=== PATIENT | female | born 1975 | race Caucasian/White ===

== ENCOUNTER 2016-04-21 14:48 | Emergency (ER) | payer OTHER ==
[2016-04-21 15:04] VITALS: RESP 18; TEMP 98
--- NOTE | 2016-04-21 15:15 | UCPHY ---
[id number]: 04/21/16 14:53 HPI/ROS: CHIEF COMPLAINT: Buttock pain HISTORY OF PRESENT ILLNESS: 40-year-old immunocompetent female with history of anal fissures complaining of 1 month of anal and perianal pain which has become progressive and and was initially present with defecation only however is now present which he is not having a bowel movement. No blood or pus in stool. No abdominal pain. No nausea no vomiting. She saw her PCP 2 weeks ago for same complaints was given topical therapy which is provided minimal to no relief REVIEW OF SYSTEMS: A ten point review of systems was performed and is negative with the exception of the items mentioned in the HPI PAST MEDICAL & SURGICAL HISTORY: Prior history of anal fissures SOCIAL HISTORY: nonsmoker PHYSICAL EXAM (Prior to examination, patient consented to physical exam, hands were washed and my usual and customary physical exam procedures followed) 1) GENERAL: Well-developed, well-nourished, alert and oriented. Appears to be in no acute distress. 2) HEAD: Normocephalic, atraumatic 3) HEENT: Pupils equal, round, reactive to light bilaterally. Sclera anicteric. 4) NECK: Full range of motion, no meningeal signs. 5) LUNGS: Clear auscultation bilaterally 6) HEART: Regular rate and rhythm, no murmur, no heave, no gallop. 7) ABDOMEN: No guarding, no rebound, no focal tenderness, negative McBurney's, negative Lopez's, negative Rovsing's, negative peritoneal sign, 8) MUSCULOSKELETAL: Moving all extremities, no focal areas of tenderness, no obvious trauma. No peripheral edema or discoloration. 9) BACK: no visual or palpable abnormality. 10) SKIN: No rash, no petechiae. 11) rectal examination (performed with female nurse Amrita at bedside): No visible hemorrhoids, fissures. No evidence of perianal abscess. No tenderness to palpation of the perianal or anal region. Positive pain with digital rectal examination. No fluctuance.. DIFFERENTIAL DIAGNOSIS: in no particular include but limited to perianal abscess, perirectal abscess, hemorrhoids, fissures (Nubia,Roberto Carlos Catalina) Constitutional: Initial Vital Signs Temperature (C) 36.6 C 04/21/16 15:02 Heart Rate 78 04/21/16 15:02 Respiratory Rate 18 04/21/16 15:02 Blood Pressure 138/98 H 04/21/16 15:02 O2 Sat (%) 97 04/21/16 15:02 O2 Delivery Mode Room Air Allergies/Adverse Reactions: No Allergies [NKDA] Allergy (Verified 08/28/15 15:51) Home Medications: Medication Instructions Recorded Hydrocortisone Acetate [Anucort-Hc] 25 mg RC BID #14 supp.rect 04/21/16 Lidocaine [Lidocaine 5% oint] 1 adina TP QID PRN #30 g 04/21/16 oxyCODONE/APAP 5/325 [Percocet 1 tab PO Q6 #15 tab 04/21/16 5/325] MDM/Departure - MDM Diagnostics: 5:07 p.m.: CT of the pelvis interpreted by radiologist shows no evidence of perianal perirectal abscess. No gross abnormality visualized. Images reviewed by myself. (Roberto Carlos Delacruz) Medications Given: Discontinued Medications Morphine Sulfate (Morphine) 4 mg IVP EDNOW ONE Stop: 04/21/16 15:22 Last Admin: 04/21/16 15:39 Dose: 4 mg Morphine Sulfate (Morphine) 2 mg IVP EDNOW ONE Stop: 04/21/16 17:12 Last Admin: 04/21/16 17:13 Dose: 2 mg Ondansetron HCl (Zofran) 4 mg IVP EDNOW ONE Stop: 04/21/16 17:14 Last Admin: 04/21/16 17:19 Dose: 4 mg Oxycodone/Acetaminophen (Percocet 5/325) 1 tab PO EDNOW ONE Stop: 04/21/16 17:24 Last Admin: 04/21/16 18:16 Dose: 1 tab ED Course/Re-evaluation: Re-evaluation with serial exams. Most recently at 5:[address] results showing no evidence of perirectal or perianal abscess. On examination patient I am unable to visualize any gross abnormality such as fissure, external hemorrhoid or thrombosed hemorrhoid. I recommended follow up with primary care provider, Gastroenterology, general surgery for further evaluation. The meantime she is prescribed medications. I prescribed her opiate analgesic, discussed the potential side effect of constipation and the benefit of pain relief and importance of fluid hydration and increasing fiber intake. Usual and customary GI precautions instructions provided. Doubt acute surgical abdominal pathology. (Roberto Carlos Delacruz) The patient was evaluated and managed by the physician visitor service assistant. I have reviewed this chart and I agree with the findings and plan of care as documented , as indicated by my signature. I am the secondary supervising physician. ( Alia Benavides) - Depart Disposition: Home, Routine, Self-Care Clinical Impression: Anal or rectal pain Condition: Good Instructions: Hemorrhoids (ED) Additional Instructions: Seek immediate medical attention if you develop abdominal pain, fevers, or any other symptoms that concern you Prescriptions: Hydrocortisone Acetate [Anucort-Hc] 25 mg RC BID #14 supp.rect Lidocaine [Lidocaine 5% oint] 1 adina TP QID PRN #30 g PRN Reason: Pain, Severe oxyCODONE/APAP 5/325 [Percocet 5/325] 1 tab PO Q6 #15 tab Referrals: Sofi Mcgill MD [Primary Care Provider] - 2-3 days, call for appt. Pablo Juarez MD [Medical Doctor] - 2-3 days, call for appt. (Dr. Pablo Juarez is a director construction services) Karri Olivas MD [Medical Doctor] - 2-3 days, call for appt. - PQRS PQRS Measurement: n/a (Roberto Carlos Delacruz)
[2016-04-21] MEDS ORDERED: ONDANSETRON 4 MG/2 ML VIAL ONE (15:25)
[2016-04-21 15:28] LABS: % IMMATURE GRANULYOCYTES 0.4 % (0.0-1.1); ABSOLUTE IMMATURE GRANULOCYTES 0.04 10^3/uL (0.00-0.10); ADD DIFF? NO; ADD MORPH? NO; ADD SCAN? NO; ATYPICAL LYMPHOCYTE FLAG 0 (0-99); FRAGMENT RBC FLAG 0 (0-99); HEMATOCRIT 42.1 % (38.0-47.0); HEMOGLOBIN 14.6 g/dL (12.6-16.3); LEFT SHIFT FLG 10 (0-99); LIPEMIA HEMOLYSIS FLAG 90 (0-99); MEAN CELL HEMOGLOBIN 33.6 pg (27.9-34.1); MEAN CELL HEMOGLOBIN CONCENTR. 34.7 g/dL (32.4-36.7); MEAN PLATELET VOLUME 9.1 fL (8.7-11.7); PLATELET CLUMPS FLAG 0 (0-99); PLATELET COUNT 316 10^3/uL (150-400); RED BLOOD CELL COUNT 4.34 10^6/uL (4.18-5.33)
[2016-04-21 15:42] LABS: ANION GAP 13 mEq/L (8-16); CALCIUM 10.2 mg/dL (8.5-10.4); CARBON DIOXIDE 24 mEq/l (22-31); CHLORIDE 105 mEq/L (97-110); CREATININE 0.9 mg/dL (0.6-1.0); GLOMERULAR FILTRATION RATE > 60; GLUCOSE 71 mg/dL (70-100); POTASSIUM 4.9 mEq/L (3.5-5.2); SODIUM 142 mEq/L (134-144)
[2016-04-21] MEDS ORDERED: IOPAMIDOL (ISOVUE-300) 100 ML BTL IV ONE (15:44)
[2016-04-21 17:13] VITALS: O2SAT 96
[2016-04-21] MEDS ORDERED: ONDANSETRON 4 MG/2 ML VIAL IVP ONE (17:13)
[2016-04-21] MEDS ORDERED: OXYCODONE/APAP 5/325 TAB PO ONE (17:23)
[2016-04-21 17:55] VITALS: BP 121/62; PULSE 78
--- NOTE | 2016-04-22 08:39 | CT ---
CT Pelvis With IV Contrast History: Perirectal abscess. Perirectal pain. Previous fistula. Technique: Axial computed tomographic images of the pelvis with IV contrast only, 90 mL [id number] co ntrast. Dose reduction technique utilized. No oral contrast which limits the study. No rectal contras t. Findings: No evidence of definite perirectal abscess or fluid collection. No pelvic intraabdominal fl uid collection. Partially collapsed follicle in the right ovary. No adnexal masses. Uterus is unremar kable. Bladder contour is unremarkable. No bladder calculi. No significant pelvic or inguinal adenopa thy. Moderate stool suggesting mild constipation. No destructive osseous lesions. Impression: 1. No perirectal abscess. 2. Possible mild constipation. 3. No pelvic masses, fluid collections, or significant adenopathy. Findings and recommendations discussed with Emergency Department physician, Eliecer Delacruz PA-C, at 17 05 hours today. Final report concurs with initial preliminary interpretation.
== END 2016-04-21 17:54 | disposition home or self-care (01) ==
LOC: CED 14:48
DX: K62.89 Other specified diseases of anus and rectum (principal)
CPT/HCPCS: 72193-PO; 80048-PO; 84703-PO; 85025-PO; 96361-PO; 96374-PO; 96375-PO; 96376-PO; 99214-PO; G0463-PO; J2405; Q9967